=== PATIENT | female | born 1950 | race Caucasian/White ===

== ENCOUNTER → 2017-01-30 | Outpatient (CLI) | payer MEDICARE | LOC: MW.CHIM 08:00 | PROVIDERS: ATTEND Internal Medicine | DX: E11.9 Type 2 diabetes mellitus without complications (principal); I10 Essential (primary) hypertension; E78.5 Hyperlipidemia, unspecified; E03.9 Hypothyroidism, unspecified | CPT/HCPCS: 99214 ==

== ENCOUNTER → 2017-01-31 | Outpatient (CLI) | payer MEDICARE | LOC: MW.CHIM 08:00 | PROVIDERS: ATTEND Internal Medicine | DX: NODX10 (principal) ==

== ENCOUNTER → 2017-02-06 | Outpatient (CLI) | payer MEDICARE | LOC: MW.CHFP 08:00 | PROVIDERS: ATTEND Emergency Medicine | DX: NODX10 (principal) ==

== ENCOUNTER 2022-08-04 12:37 | Inpatient (IN) | payer MEDICARE ==
[2022-08-04] MEDS ORDERED: Sodium Chloride 0.9% 2.5 ML Syringe FLUSH PRN (12:46)
[2022-08-04] MEDS ORDERED: Sodium Chloride 0.9% 1,000 ML IV ONE ×2 (12:46→14:46)
[2022-08-04] MEDS ORDERED: Sodium Chloride 0.9% 10 ML Syringe FLUSH PRN (12:46)
[2022-08-04] MEDS ORDERED: Ondansetron 4 MG/2 ML SDV IVPUSH ONE (12:55)
[2022-08-04] MEDS: Morphine 4 MG/ML Syringe IVPUSH ONE ×2 (13:38→13:48)
[2022-08-04 13:50] LABS: CORONAVIRUS COVID-19 NAA NEGATIVE (NEGATIVE); INFLUENZA A NAA NEGATIVE (NEGATIVE); INFLUENZA B NAA NEGATIVE (NEGATIVE)
[2022-08-04 14:29] LABS: CARBON DIOXIDE,CO2 26.8 mmol/L (21.0-32.0); POTASSIUM,K 4.4 mmol/L (3.5-5.1)
[2022-08-04] MEDS ORDERED: Glucagon,Human Recombinant 1 MG Vial IM PRN (15:24)
[2022-08-04] MEDS ORDERED: 50% Dextrose in Water 50 ML Syringe IVPUSH PRN (15:24)
[2022-08-04] MEDS: Pantoprazole 40 MG in Sodium Chloride 0.9% 10 ML IVPUSH SCH (16:57)
[2022-08-04] MEDS ORDERED: Insulin Aspart 100 Units/ML 3 ML Pen SUBCUT SCH (17:00)
[2022-08-04] MEDS: Sodium Chloride 0.9% 1,000 ML IV SCH (18:24)
[2022-08-04] MEDS ORDERED: Non-Formulary Medication 1 Each (Insulin Detemir [Levemir] 100 UNIT/ML Ml) SQ SCH (21:00)
[2022-08-04] MEDS: Insulin Detemir 100 Units/ML 3 ML Pen SUBCUT SCH (21:42)
[2022-08-04] MEDS: Insulin Aspart 100 Units/ML 3 ML Pen SUBCUT SCH (21:47)
[2022-08-04] MEDS ORDERED: fentaNYL 50 MCG/ML SDV IVPUSH PRN (22:22)
[2022-08-04] MEDS: HYDROmorphone 2 MG/ML Syringe IVPUSH PRN (22:44)
[2022-08-05] MEDS: Sodium Chloride 0.9% 1,000 ML IV SCH ×3 (02:18→19:38)
[2022-08-05] MEDS: Insulin Aspart 100 Units/ML 3 ML Pen SUBCUT SCH ×4 (02:23→20:55)
[2022-08-05] MEDS: HYDROmorphone 2 MG/ML Syringe IVPUSH PRN ×2 (02:39→20:52)
[2022-08-05] MEDS: Ondansetron 4 MG/2 ML SDV IVPUSH PRN ×4 (02:48→21:06)
[2022-08-05 06:53] LABS: POTASSIUM,K 3.5 mmol/L (3.5-5.1)
[2022-08-05] MEDS: Levothyroxine 150 MCG Tab PO SCH (07:10)
[2022-08-05] MEDS ORDERED: Aspirin 81 MG Tab.Chew PO SCH (09:00)
[2022-08-05] MEDS: atorvaSTATin 40 MG Tab PO SCH (09:25)
[2022-08-05 09:58] LABS: HEMOGLOBIN A1C 6.2 %
[2022-08-05] MEDS: Insulin Detemir 100 Units/ML 3 ML Pen SUBCUT SCH ×2 (10:34→20:58)
[2022-08-05] MEDS: Pantoprazole 40 MG in Sodium Chloride 0.9% 10 ML IVPUSH SCH (15:56)
[2022-08-05] MEDS: Benzocaine/Cetylpyridinium/Menthol Lozenge MUCMEM PRN (20:51)
[2022-08-06] MEDS: HYDROmorphone 2 MG/ML Syringe IVPUSH PRN ×2 (02:21→10:04)
[2022-08-06] MEDS: Ondansetron 4 MG/2 ML SDV IVPUSH PRN (02:33)
[2022-08-06] MEDS: Insulin Aspart 100 Units/ML 3 ML Pen SUBCUT SCH ×4 (03:11→20:23)
[2022-08-06] MEDS: Dextrose 5%-0.45% NaCl 1,000 ML IV SCH ×2 (03:28→11:52)
[2022-08-06] MEDS: Levothyroxine 150 MCG Tab PO SCH (06:32)
[2022-08-06 07:00] LABS: CARBON DIOXIDE,CO2 28.4 mmol/L (21.0-32.0); POTASSIUM,K 3.2 mmol/L (3.5-5.1)
[2022-08-06] MEDS ORDERED: Potassium Chloride 20 MEQ in Premix Bag 1 BAG IV ONE (07:07)
[2022-08-06] MEDS: Potassium Chloride 20 MEQ in Premix Bag 1 BAG IV SCH ×2 (08:36→11:01)
[2022-08-06] MEDS: atorvaSTATin 40 MG Tab PO SCH (10:03)
[2022-08-06] MEDS: Insulin Detemir 100 Units/ML 3 ML Pen SUBCUT SCH ×2 (10:34→20:33)
[2022-08-06] MEDS ORDERED: Metoclopramide 10 MG/2 ML SDV IVPUSH PRN (11:20)
[2022-08-06] MEDS ORDERED: fentaNYL 50 MCG/ML SDV IVPUSH PRN (11:20)
[2022-08-06] MEDS ORDERED: Albuterol 0.083% 2.5 MG/3 ML Neb Soln NEB PRN (11:20)
[2022-08-06] MEDS ORDERED: Ondansetron 4 MG/2 ML SDV IVPUSH PRN ×4 (11:20→17:28)
[2022-08-06] MEDS ORDERED: Naloxone 0.4 MG/ML SDV IVPUSH PRN ×3 (11:20→17:28)
[2022-08-06] MEDS ORDERED: Morphine 2 MG/ML SYRINGE IVPUSH PRN (11:20)
[2022-08-06] MEDS ORDERED: HYDROmorphone 1 MG/ML Syringe IVPUSH PRN (11:20)
[2022-08-06] MEDS ORDERED: Lidocaine 2% 5 ML SDV ONE (12:10)
[2022-08-06] MEDS ORDERED: Ondansetron 4 MG/2 ML SDV ONE (12:10)
[2022-08-06] MEDS ORDERED: Propofol 200 MG/20 ML SDV ONE (12:10)
[2022-08-06] MEDS ORDERED: Sugammadex Sodium 200 MG/2 ML VIAL ONE (12:10)
[2022-08-06] MEDS ORDERED: Rocuronium Bromide 50 MG/5 ML Syringe ONE (12:10)
[2022-08-06] MEDS ORDERED: fentaNYL 100 MCG/2 ML SDV ONE (12:11)
[2022-08-06] MEDS ORDERED: Ropivacaine 0.5% 5 MG/ML 30 ML SDV ONE (12:23)
[2022-08-06] MEDS ORDERED: Dexmedetomidine 200 MCG/2 ML SDV ONE (12:26)
[2022-08-06] MEDS ORDERED: EPINEPHrine 1 MG/1 ML Amp ONE (12:34)
[2022-08-06] MEDS ORDERED: WATER FOR INJECTION STERILE ONE (12:35)
[2022-08-06] MEDS ORDERED: Lidocaine 1% 5 ML VIAL ONE (13:10)
[2022-08-06] MEDS ORDERED: cefOXitin 1 GM Vial ONE (14:01)
[2022-08-06] MEDS ORDERED: Phenylephrine HCl In 0.9% NaCl 1 MG/10 ML Vial ONE (14:02)
[2022-08-06] MEDS ORDERED: Sodium Chloride 0.9% 2.5 ML Syringe FLUSH PRN (16:29)
[2022-08-06] MEDS ORDERED: Sodium Chloride 0.9% 10 ML Syringe FLUSH PRN (16:29)
[2022-08-06] MEDS ORDERED: Sodium Chloride 0.9% 20 ML SDV IV PRN (16:29)
[2022-08-06] MEDS ORDERED: Morphine Sulfate in 0.9 % NaCl 50 MG/50 ML PCA Bag IV SCH (16:30)
[2022-08-06] MEDS ORDERED: Lactated Ringers 1,000 ML IV SCH (16:30)
[2022-08-06] MEDS ORDERED: diphenhydrAMINE 50 MG/ML SDV IVPUSH PRN ×2 (17:01→17:28)
[2022-08-06] MEDS ORDERED: diphenhydrAMINE 25 MG Cap PO PRN ×2 (17:01→17:28)
[2022-08-06] MEDS ORDERED: HYDROmorphone/Normal Saline 10 MG/50 ML PCA IV SCH (17:15)
[2022-08-06] MEDS ORDERED: HYDROmorphone/Normal Saline 10 MG/50 ML PCA IV PRN (17:28)
[2022-08-06] MEDS: Pantoprazole 40 MG in Sodium Chloride 0.9% 10 ML IVPUSH SCH (18:00)
[2022-08-06] MEDS: Metoclopramide 10 MG/2 ML SDV IV SCH ×2 (18:16→22:17)
[2022-08-06] MEDS: cefOXitin 1 GM in Premix Bag 1 BAG IV SCH (20:31)
[2022-08-07] MEDS: cefOXitin 1 GM in Premix Bag 1 BAG IV SCH ×2 (02:52→09:01)
[2022-08-07] MEDS: Insulin Aspart 100 Units/ML 3 ML Pen SUBCUT SCH ×4 (02:55→22:10)
[2022-08-07] MEDS: Metoclopramide 10 MG/2 ML SDV IV SCH (05:35)
[2022-08-07] MEDS: Levothyroxine 150 MCG Tab PO SCH (06:32)
[2022-08-07 06:48] LABS: POTASSIUM,K 3.7 mmol/L (3.5-5.1)
[2022-08-07] MEDS: Dextrose 5%-0.45% NaCl 1,000 ML IV SCH ×2 (07:46→16:43)
[2022-08-07] MEDS ORDERED: Benzocaine/Cetylpyridinium/Menthol Lozenge MUCMEM PRN (08:28)
[2022-08-07] MEDS: atorvaSTATin 40 MG Tab PO SCH (08:32)
[2022-08-07] MEDS: Insulin Detemir 100 Units/ML 3 ML Pen SUBCUT SCH ×2 (09:12→22:11)
[2022-08-07] MEDS: Metoclopramide 10 MG/2 ML SDV IVPUSH SCH ×3 (11:27→22:46)
[2022-08-07] MEDS: Benzocaine/Cetylpyridinium/Menthol Lozenge MUCMEM PRN ×4 (13:39→22:45)
[2022-08-07] MEDS: Pantoprazole 40 MG in Sodium Chloride 0.9% 10 ML IVPUSH SCH (16:39)
[2022-08-08] MEDS: Dextrose 5%-0.45% NaCl 1,000 ML IV SCH ×3 (01:46→19:34)
[2022-08-08] MEDS: Metoclopramide 10 MG/2 ML SDV IVPUSH SCH ×4 (05:24→23:03)
[2022-08-08] MEDS: Insulin Aspart 100 Units/ML 3 ML Pen SUBCUT SCH ×3 (06:33→17:50)
[2022-08-08] MEDS: Levothyroxine 150 MCG Tab PO SCH (06:37)
[2022-08-08 07:01] LABS: POTASSIUM,K 3.7 mmol/L (3.5-5.1)
[2022-08-08] MEDS: atorvaSTATin 40 MG Tab PO SCH (08:16)
[2022-08-08] MEDS ORDERED: HYDROmorphone 1 MG/ML Syringe IVPUSH PRN (11:07)
[2022-08-08] MEDS: cefTRIAXone 1 GM in Sodium Chloride 0.9% 50 ML IV SCH (11:53)
[2022-08-08] MEDS: Benzocaine/Cetylpyridinium/Menthol Lozenge MUCMEM PRN (12:29)
[2022-08-08] MEDS: Pantoprazole 40 MG in Sodium Chloride 0.9% 10 ML IVPUSH SCH (15:43)
[2022-08-08] MEDS: Insulin Detemir 100 Units/ML 3 ML Pen SUBCUT SCH (21:28)
[2022-08-09] MEDS: Insulin Aspart 100 Units/ML 3 ML Pen SUBCUT SCH ×6 (00:55→23:44)
[2022-08-09] MEDS: Dextrose 5%-0.45% NaCl 1,000 ML IV SCH ×3 (03:01→19:59)
[2022-08-09] MEDS: Metoclopramide 10 MG/2 ML SDV IVPUSH SCH ×4 (05:19→23:44)
[2022-08-09] MEDS: Levothyroxine 150 MCG Tab PO SCH (06:54)
[2022-08-09 07:04] LABS: CARBON DIOXIDE,CO2 26.5 mmol/L (21.0-32.0); POTASSIUM,K 2.9 mmol/L (3.5-5.1)
[2022-08-09] MEDS: Potassium Chloride 100 ML IV SCH ×4 (08:06→14:29)
[2022-08-09] MEDS: Enoxaparin 40 MG/0.4 ML Syringe SUBCUT SCH (08:11)
[2022-08-09] MEDS: atorvaSTATin 40 MG Tab PO SCH (08:12)
[2022-08-09] MEDS: cefTRIAXone 1 GM in Sodium Chloride 0.9% 50 ML IV SCH (11:26)
[2022-08-09] MEDS: Benzocaine/Cetylpyridinium/Menthol Lozenge MUCMEM PRN (11:51)
[2022-08-09] MEDS: Pantoprazole 40 MG in Sodium Chloride 0.9% 10 ML IVPUSH SCH (16:05)
[2022-08-09] MEDS: Insulin Detemir 100 Units/ML 3 ML Pen SUBCUT SCH (21:04)
[2022-08-10] MEDS: Metoclopramide 10 MG/2 ML SDV IVPUSH SCH ×4 (04:56→22:28)
[2022-08-10] MEDS: Dextrose 5%-0.45% NaCl 1,000 ML IV SCH (04:56)
[2022-08-10] MEDS: Enoxaparin 40 MG/0.4 ML Syringe SUBCUT SCH (06:51)
[2022-08-10] MEDS: Insulin Aspart 100 Units/ML 3 ML Pen SUBCUT SCH ×3 (06:51→17:15)
[2022-08-10] MEDS: Levothyroxine 150 MCG Tab PO SCH (06:51)
[2022-08-10 07:00] LABS: CARBON DIOXIDE,CO2 24.8 mmol/L (21.0-32.0); POTASSIUM,K 2.9 mmol/L (3.5-5.1)
[2022-08-10] MEDS ORDERED: MAGNESIUM SULFATE IV ONE (09:00)
[2022-08-10] MEDS ORDERED: Magnesium Chloride 64 MG Tab.ER PO SCH (09:00)
[2022-08-10] MEDS ORDERED: POTASSIUM PHOSPHATES IV ONE (09:00)
[2022-08-10] MEDS ORDERED: [UNRECOGNIZED DRUG - OTHER] IV ONE (09:00)
[2022-08-10] MEDS: cefTRIAXone 1 GM in Sodium Chloride 0.9% 50 ML IV SCH (10:36)
[2022-08-10] MEDS ORDERED: Acetaminophen 325 MG Tab PO PRN (11:24)
[2022-08-10] MEDS ORDERED: Phosphorus #1 250 MG Tab PO SCH (12:00)
[2022-08-10] MEDS ORDERED: Potassium Chloride 20 MEQ Tab.ER PO ONE (17:00)
[2022-08-10] MEDS: Pantoprazole 40 MG in Sodium Chloride 0.9% 10 ML IVPUSH SCH (17:03)
[2022-08-10] MEDS: Insulin Detemir 100 Units/ML 3 ML Pen SUBCUT SCH (20:57)
[2022-08-11] MEDS: Metoclopramide 10 MG/2 ML SDV IVPUSH SCH ×2 (05:44→11:29)
[2022-08-11 06:32] LABS: CARBON DIOXIDE,CO2 26.4 mmol/L (21.0-32.0); POTASSIUM,K 3.4 mmol/L (3.5-5.1)
[2022-08-11] MEDS: Levothyroxine 150 MCG Tab PO SCH (06:42)
[2022-08-11] MEDS: Insulin Aspart 100 Units/ML 3 ML Pen SUBCUT SCH ×2 (08:26→12:06)
[2022-08-11] MEDS: Enoxaparin 40 MG/0.4 ML Syringe SUBCUT SCH (08:31)
[2022-08-11] MEDS ORDERED: Potassium Chloride 20 MEQ Tab.ER PO ONE (09:00)
[2022-08-11] MEDS: cefTRIAXone 1 GM in Sodium Chloride 0.9% 50 ML IV SCH (11:24)
[2022-08-11 14:05] VITALS: BP 129/59; PULSE 70
== END 2022-08-11 13:00 | disposition home or self-care (01) | DRG 330 ==
LOC: MW.ED 12:37 → OBSVTOIN 14:34 → MW.MS 14:34 → OBSVTOIN 08-06 16:09 → INTOOBSV 08-06 16:09
PROVIDERS: ADMIT Internal Medicine; ATTEND Surgery
PROC: 0DN80ZZ Release Small Intestine, Open Approach (ICD-10-PCS; principal; 2022-08-06)
PROC: 0DQ80ZZ Repair Small Intestine, Open Approach (ICD-10-PCS; 2022-08-06)
PROC: 4A1BXSH Monitoring of Gastrointestinal Vascular Perfusion using Indocyanine Green Dye, External Approach (ICD-10-PCS; 2022-08-06)
DX: K56.50 Intestinal adhesions [bands], unspecified as to partial versus complete obstruction (principal); N17.9 Acute kidney failure, unspecified; N39.0 Urinary tract infection, site not specified; E86.0 Dehydration; K52.9 Noninfective gastroenteritis and colitis, unspecified; Z20.822 Contact with and (suspected) exposure to COVID-19; E78.00 Pure hypercholesterolemia, unspecified; Z88.8 Allergy status to other drugs, medicaments and biological substances; I10 Essential (primary) hypertension; E11.65 Type 2 diabetes mellitus with hyperglycemia; E11.649 Type 2 diabetes mellitus with hypoglycemia without coma; Z79.899 Other long term (current) drug therapy; K56.609 Unspecified intestinal obstruction, unspecified as to partial versus complete obstruction; E03.9 Hypothyroidism, unspecified; Z88.0 Allergy status to penicillin; Z88.5 Allergy status to narcotic agent; Z79.82 Long term (current) use of aspirin; Z79.4 Long term (current) use of insulin; Z79.890 Hormone replacement therapy
CPT/HCPCS: 0240U; 36415; 44799; 71045; 74018; 74176; 76705; 80048; 80053; 81001; 82803; 82947; 83036; 83605; 83735; 84100; 84484; 85025; 87086; 93005; 96361; 96374; 96375; 96376; 97162; 99285; 00840; 64488; 87147; 99100; A9270-GY; C9113; G0378; J0171; J0694; J0696; J1170; J1650; J1815-GY; J2270; J2405; J2704; J2765; J2795; J3010; J3475; J3480; J3490; J7030; J7042; J7120